=== PATIENT | female | born 1990 | race Caucasian/White ===

== ENCOUNTER 2016-09-27 17:16 | Emergency (ER) | payer OTHER ==
[~2016-09-27 17:16] MED LIST: ALPR1TAB3 PO
--- NOTE | 2016-09-27 18:14 | PD ---
HPI Chief Complaint Patient here for viability to go to [employer] [facility] Date Seen: Sep 27, 2016 Travel History International Travel<30 Days: No Contact w/Intl Traveler<30Days: No Known Affected Area: No History of Present Illness HPI Patient is 26-year-old white female at 31 weeks and essentially no regular care she's been to several hospital ERs over in the area and had several ultrasounds but no doctor visits. She is planning to see Dr. Samuel because she is just getting out of prison in OB in the [facility] warm program. Patient denies pain bleeding or leakage of fluid. Baby is active. Heart rate tracing is reactive.no Contractions noted Para: 0 : 3 History Social History Alcohol Use: Yes Tobacco Use: Yes Substance Abuse: Yes Allergies-Medications (Allergen,Severity, Reaction): Coded Allergies: Cipro (Verified Allergy, Unknown, 01/23/16) Zyrtec (Unverified Allergy, Unknown, 01/23/16) Home Meds Reported Medications Alprazolam 1 Mg Tab1 Mg PO Q6H PRN (ANXIETY) Ref 0 01/23/16 Review of Systems General / Constitutional: No: Fever, Weight Gain, Chills, Other Eyes: No: Diploplia, Blurred Vision, Visual changes, Pain, Photophobia HENT: No: Headaches, Vertigo, Lightheadedness Cardiovascular: No: Irregular Rhythm, Chest Pain or Discomfort, Palpitations, Tachycardia, Syncope, Varicosities, Edema, Cyanosis Respiratory: No: Cough, Short of Breath, Other Gastrointestinal: No: Nausea, Vomiting, Diarrhea Genitourinary: No: Decreased Urinary Output, Oliguria Musculoskeletal: No: Limited ROM, Weakness, Cramping, Edema, Pain Skin: No Rash, No Itching, No Dryness, No Lumps, No Change in Pigmentation, No Change in Nails, No Alopecia, No Lesions Neurologic: No: Weakness, Dizziness, Syncope, Focal Abnormalities, Coordination Problem, Headache, Slurred Speech, Seizures Psychiatric: No: Depression, Suicidal Ideations, Homicidal Ideation Endocrine: No: Heat Intolerance, Cold Intolerance, Polydipsia, Polyuria, Other Physical Exam Narrative GENERAL: Well-nourished, well-developed patient. SKIN: Warm and dry. HEAD: Normocephalic and atraumatic. EYES: No scleral icterus. No injection or drainage. ENT: No nasal drainage noted. Mucous membranes pink. Airway patent. NECK: Supple, trachea midline. No JVD. CARDIOVASCULAR: Regular rate and rhythm without murmurs, gallops, or rubs. RESPIRATORY: Breath sounds equal bilaterally. No accessory muscle use. BREASTS: Bilateral exam showed no masses , no retractions, no nipple discharge. ABDOMEN/GI: Abdomen soft, non-tender, bowel sounds present, no rebound, no guarding Gravid to [-30] weeks size Fundal Height: [30-] GENITOURINARY: External Genitalia: intact and normal in appearance Presentation: [-Backup transverse] Membranes: [intact ] Uterine Contractions: [none-] FHT's: Category: [-]1 Baseline: [133-] Reactive: [-yes] Variability: [-mod] Decels: [none-] EXTREMITIES: No cyanosis or edema. BACK: Nontender without obvious deformity. No CVA tenderness. NEUROLOGICAL: Awake and alert. Motor and sensory grossly within normal limits. Five out of 5 muscle strength in all muscle groups. Normal speech. Data Data Orders Ob Poc Ultrasound (09/27/16 ) Labs Ultrasound done at bedside shows a single intrauterine 30 week size estimated weight 220 gm that is a backup transverse lie with small parts and lower uterine segment. This adequate amniotic fluid, anterior placenta grade 1 that is low lying but not a previa, EDC by her ultrasound 12/06/16 and this correlates well with previous scan she's had. MDM Interpretation(s) Patient is a 26-year-old white female at 31 weeks who presents for basically viability She's going into project [facility], she has no complaints or problems. She denies bleeding or leakage her pain, baby is active, heart rate tracing is reactive, no contractions noted, cervix was not checked today. Her bedside ultrasound is consistent with a 30 week intrauterine in a backup transverse lie with anterior placenta is low-lying but not a previa, as normal amniotic fluid normal anatomy scan Plan Plan to discharge and she will go to the appropriate facility and program and begin care Dr. Samuel Diagnosis Diagnosis: Primary Impression: Drug use affecting in third trimester Disposition: 01 DISCHARGE HOME Condition: Stable Patient Instructions: General Instructions, Labor (ED), Having Your Baby: The Labor Process (GEN), Movement (ED) Departure Forms: Tests/Procedures Tian Page II, MD Sep 27, 2016 18:14
== END 2016-09-27 18:17 | disposition home or self-care (01) ==
LOC: HOBED 17:18
DX: O99.323 Drug use complicating pregnancy, third trimester (principal); Z3A.31 31 weeks gestation of pregnancy; Z79.899 Other long term (current) drug therapy; Z88.1 Allergy status to other antibiotic agents; Z88.8 Allergy status to other drugs, medicaments and biological substances; Z72.0 Tobacco use
CPT/HCPCS: 76815

== ENCOUNTER 2016-10-04 13:22 | Emergency (ER) | payer OTHER ==
[~2016-10-04] VITALS: Ht 170.2 cm; Wt 70.0 kg
[2016-10-04 13:24] VITALS: BP 124/77; PULSE 110; RESP 16; TEMP 98.2; O2SAT 98
[2016-10-04 15:15] VITALS: RESP 16
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
[2016-10-04] MEDS ORDERED: LACTATED RINGER'S 1000 ML INJ 1,000 ML IV SCH (16:06)
[2016-10-04] MEDS ORDERED: TERBUTALINE INJ 1 MG/ML AMP SQ PRN (16:15)
[2016-10-04 16:48] LABS: BLOOD, URINE NEG (NEG); COMMENT (UR) CULT NOT INDICATED; CULTURE IF INDICATED CULT NOT INDICATED; GLUCOSE,URINE NEG (NEG); KETONE, URINE 40 mg/dL (NEG); MUCUS URINE FEW /lpf (OCC); NITRITE,URINE NEG (NEG); PH, URINE 6.5 (5.0-8.5); SQUAMOUS EPITHELIAL CELL URINE 16 /hpf (0-5); URINE COLOR YELLOW (YELLW/STRAW)
[2016-10-04] MEDS ORDERED: ACETAMINOPHEN 325 MG TAB PO ONE (17:00)
[2016-10-04 17:06] VITALS: BP 110/58; PULSE 99
[2016-10-04] MEDS ORDERED: LORA1CHW CHEW (17:40)
== END 2016-10-04 18:18 | disposition home or self-care (01) ==
LOC: HOBED 13:22
DX: O62.9 Abnormality of forces of labor, unspecified (principal); O26.893 Other specified pregnancy related conditions, third trimester; R30.0 Dysuria; Z29.13 Encounter for prophylactic Rho(D) immune globulin; Z3A.31 31 weeks gestation of pregnancy
CPT/HCPCS: 59025; 81001; 82731; 86850; 86900; 86901; 87086; 96360; 96361; 96372; 99284; J2790; J7120; 90384; J3010

== ENCOUNTER 2016-11-29 12:45 | Emergency (ER) | payer OTHER ==
[~2016-11-29 12:45] MED LIST changes: -ALPR1TAB3 PO; +CLAR10CA3 PO; +PREN1TAB58; +TYLE325T PO
--- NOTE | 2016-11-29 13:46 | PD ---
HPI Chief Complaint contractions Date Seen: Nov 29, 2016 Time Seen: 13:43 Travel History International Travel<30 Days: No Contact w/Intl Traveler<30Days: No History of Present Illness HPI Ms. Montanez is a 26 y/o at 39 weeks presents for contractions. She states that early this morning starting noticing contractions every 5-6 minutes. States they aren't very painful. Also lost her mucus plug. Otherwise, denies any vaginal bleeding, loss of fluids. Endorses good movement. She sees care for women. No problems during this . She was using Lortab and Xanax early in , but quit at 8 weeks. She is currently at [employer]. Occasional headache, but denies changes in vision, RUQ pain, edema. No chest pain, SOB, dysuria, leg pain. Weeks Gestation: 39 Para: 0 : 3 Miscarriage: 1 : 1 History Past Medical History Medical History: Denies Significant Hx Obstetric History Obstetric History 1st - 2nd -miscarriage early in gestation Past Surgical History Surgical History: No Previous Surgery Family History Family History: Negative Social History Alcohol Use: No Tobacco Use: No Substance Abuse: No Allergies-Medications (Allergen,Severity, Reaction): Coded Allergies: cetirizine (Unverified Allergy, Unknown, 11/24/16) ciprofloxacin (Verified Allergy, Unknown, 11/24/16) Home Meds Reported Medications Acetaminophen (Tylenol) 325 Mg Tab, 650 MG PO Q4H Y for PAIN SCALE 1 TO 5, TAB 0 Refills 11/10/16 Loratadine (Claritin) 10 Mg Cap, 10 MG PO DAILY for Allergy Management, CAP 0 Refills 11/10/16 Vit/Iron Fumarate/FA ( Vitamin Formula Tb) 27 Mg Iron-800 Mcg Tablet 11/10/16 Review of Systems General / Constitutional: Weight Gain, No: Fever, Chills, Other Eyes: No: Diploplia, Blurred Vision, Visual changes, Pain, Photophobia HENT: Headaches, No: Vertigo, Lightheadedness Cardiovascular: No: Irregular Rhythm, Chest Pain or Discomfort, Palpitations, Tachycardia, Syncope, Varicosities, Edema, Cyanosis Respiratory: No: Cough, Short of Breath, Other Gastrointestinal: No: Nausea, Vomiting, Diarrhea, Abdominal Pain Genitourinary: No: Urgency, Dysuria, Decreased Urinary Output, Oliguria Musculoskeletal: No: Limited ROM, Weakness, Cramping, Edema, Pain Skin: No Rash, No Itching, No Dryness, No Lumps, No Change in Pigmentation, No Change in Nails, No Alopecia, No Lesions Neurologic: No: Weakness, Dizziness, Syncope, Focal Abnormalities, Coordination Problem, Headache, Slurred Speech, Seizures Psychiatric: No: Depression, Suicidal Ideations, Homicidal Ideation Endocrine: No: Heat Intolerance, Cold Intolerance, Polydipsia, Polyuria, Other Physical Exam Narrative GENERAL: Well-nourished, well-developed patient. SKIN: Warm and dry. HEAD: Normocephalic and atraumatic. EYES: No scleral icterus. No injection or drainage. ENT: No nasal drainage noted. Mucous membranes pink. Airway patent. NECK: Supple, trachea midline. No JVD. CARDIOVASCULAR: Regular rate and rhythm without murmurs, gallops, or rubs. RESPIRATORY: Breath sounds equal bilaterally. No accessory muscle use. ABDOMEN/GI: Abdomen soft, non-tender, bowel sounds present, no rebound, no guarding Gravid to 39 weeks size GENITOURINARY: External Genitalia: intact and normal in appearance Cervix: posterior Dilatation: 1-2 Effacement: 50 Station: -3 Presentation: vertex Membranes: intact Uterine Contractions: q5-6 minutes FHT's: Category: 1 Baseline: 150 Reactive: yes Variability: moderate Decels: none EXTREMITIES: No cyanosis or edema. BACK: Nontender without obvious deformity. No CVA tenderness. NEUROLOGICAL: Awake and alert. Motor and sensory grossly within normal limits. Five out of 5 muscle strength in all muscle groups. Normal speech. Data Data Vital Signs Reviewed: Yes Orders Orders Vital Signs (Adult) .ON ADMISSION (11/29/16 13:38) ^ Labor Status (11/29/16 13:38) ^ Hydration (11/29/16 13:38) Group B Strep: Negative MDM Medical Record Reviewed: Yes Interpretation(s) 26 y/o at 39/0 weeks presents for contractions. Category 1 FHT. Cervical exam: 1-2/50/-3 GBS negative 1) IUP at 39/0 weeks. FHT reassuring, no signs of active labor. In latent labor. -Oral hydration -Discharge home -Return to ED if painful contractions q2-3 minutes apart, gush of fluids, or vaginal bleeding. -F/u with OB Diagnosis Diagnosis: Primary Impression: Qualified Codes: Z3A.39 - 39 weeks gestation of Disposition: 01 DISCHARGE HOME Condition: Stable Patient Instructions: General Instructions, Early Labor Signs (ED) Nilson Monte MD, R2 Nov 29, 2016 13:46
== END 2016-11-29 14:26 | disposition home or self-care (01) ==
LOC: HOBED 12:45
DX: O26.893 Other specified pregnancy related conditions, third trimester (principal); R10.9 Unspecified abdominal pain; Z3A.39 39 weeks gestation of pregnancy
CPT/HCPCS: 99283

== ENCOUNTER 2016-11-29 20:58 | Inpatient (IN) | payer OTHER ==
[~2016-11-29] VITALS: Ht 170.2 cm; Wt 80.0 kg
[2016-11-29] VITALS (8 sets, daily range): BP systolic 115–133; BP diastolic 67–83; PULSE 92–107; RESP 18
[2016-11-29] MEDS ORDERED: hydrOXYzine HCL 50 MG/ML VIAL IM STA (21:36)
--- NOTE | 2016-11-29 21:59 | PD ---
HPI Chief Complaint Contractions and vaginal discharge Date Seen: Nov 29, 2016 Time Seen: 21:55 Travel History International Travel<30 Days: No Contact w/Intl Traveler<30Days: No Known Affected Area: No History of Present Illness HPI 26-year-old who is at 39 weeks and 3 days comes in complaining of worsening contractions since discharged at 4 PM as well as some watery discharge that occurred just after arrival. Patient denies any obstetrical complications and sees care for women and is involved in [facility]. Group B strep is negative. Weeks Gestation: 39 Para: 0 : 3 Miscarriage: 1 : 1 History Past Medical History Medical History: Denies Significant Hx Obstetric History Obstetric History One miscarriage and 1 Past Surgical History Surgical History: No Previous Surgery Family History Family History: Negative Social History Alcohol Use: No Tobacco Use: No Substance Abuse: Yes (history of Lortab and Xanax use in first trimester) Allergies-Medications (Allergen,Severity, Reaction): Coded Allergies: cetirizine (Unverified Allergy, Unknown, 11/29/16) ciprofloxacin (Verified Allergy, Unknown, 11/29/16) Home Meds Reported Medications Acetaminophen (Tylenol) 325 Mg Tab, 650 MG PO Q4H Y for PAIN SCALE 1 TO 5, TAB 0 Refills 11/10/16 Loratadine (Claritin) 10 Mg Cap, 10 MG PO DAILY for Allergy Management, CAP 0 Refills 11/10/16 Vit/Iron Fumarate/FA ( Vitamin Formula Tb) 27 Mg Iron-800 Mcg Tablet 11/10/16 Review of Systems Except as stated in HPI: all other systems reviewed are Neg Physical Exam Narrative GENERAL: Well-nourished, well-developed patient. SKIN: Warm and dry. HEAD: Normocephalic and atraumatic. EYES: No scleral icterus. No injection or drainage. ENT: No nasal drainage noted. Mucous membranes pink. Airway patent. NECK: Supple, trachea midline. No JVD. CARDIOVASCULAR: Regular rate and rhythm without murmurs, gallops, or rubs. RESPIRATORY: Breath sounds equal bilaterally. No accessory muscle use. ABDOMEN/GI: Abdomen soft, non-tender, bowel sounds present, no rebound, no guarding Gravid to [39-] weeks size Fundal Height: [-] GENITOURINARY: External Genitalia: intact and normal in appearance BUS glands: [-Normal] Cervix: [-Posterior] Dilatation: [-1 to2] Effacement: [-80] Station: [-2-] Presentation: [Vertex-] Membranes: [Grossly ruptured] Uterine Contractions: [-Every 5 minutes FHT's: Category: [1-] Baseline: [-140] Reactive: [Moderate-] Variability: [-Moderate] Decels: [-Absent] EXTREMITIES: No cyanosis or edema. BACK: Nontender without obvious deformity. No CVA tenderness. NEUROLOGICAL: Awake and alert. Motor and sensory grossly within normal limits. Five out of 5 muscle strength in all muscle groups. Normal speech. Data Data Vital Signs Reviewed: Yes Orders Orders Vital Signs (Adult) .ON ADMISSION (11/29/16 21:36) ^ Labor Status (11/29/16 21:36) Diet Liquid (11/30/16 Breakfast) Hydroxyzine Hcl Inj (Vistaril Inj) (11/29/16 21:36) Ob (2e) Additional Admit Info (11/29/16 21:53) Group B Strep: Negative MDM Medical Record Reviewed: Yes Plan 26-year-old who is at 39-40 weeks gestation with rupture membranes in early labor and group B strep negative. History of Lortab exam next use, will order a urine drug screen Diagnosis Diagnosis: Primary Impression: Drug use affecting in third trimester Additional Impressions: 39 weeks gestation of Irregular uterine contractions Rupture of membranes with clear amniotic fluid Priya Castro MD Nov 29, 2016 21:59
[2016-11-29] MEDS ORDERED: OXYTOCIN 30 UNITS-500ML PREMIX 500 ML IV ONE (22:00)
[2016-11-29] MEDS ORDERED: SODIUM CHLORID 0.9% 500 ML INJ 500 ML IV PRN (22:00)
[2016-11-29] MEDS ORDERED: LACTATED RINGER'S 1000 ML INJ 1,000 ML IV PRN (22:00)
[2016-11-29] MEDS ORDERED: LIDOCAINE HCL 1% 50 ML VIAL INFIL PRN (22:00)
[2016-11-29] MEDS ORDERED: CITRIC ACID-SODIUM CITRATE LIQ 30 ML UDC PO SCH (22:00)
[2016-11-29] MEDS ORDERED: MINERAL OIL 10 ML VIAL TOPICAL PRN (22:00)
[2016-11-29] MEDS ORDERED: ONDANSETRON HCL 4 MG/2 ML VIAL IV PRN (22:00)
[2016-11-29] MEDS ORDERED: LIDOCAINE HCL 1% 50 ML VIAL I-DERMAL PRN (22:00)
[2016-11-29] MEDS ORDERED: SODIUM CHLOR 0.9% 1000 ML INJ 1,000 ML IV PRN (22:20)
[2016-11-29 22:24] LABS: BACTERIA, URINE FEW /hpf; BLOOD, URINE MOD (NEG); COMMENT (UR) CULTURE INDICATED; CULTURE IF INDICATED CULTURE INDICATED; GLUCOSE,URINE TRACE mg/dL (NEG); KETONE, URINE NEG (NEG); MUCUS URINE FEW /lpf (OCC); NITRITE,URINE POS (NEG); PH, URINE 6.5 (5.0-8.5); SQUAMOUS EPITHELIAL CELL URINE 8 /hpf (0-5); URINE COLOR YELLOW (YELLW/STRAW)
[2016-11-29 22:27] LABS: AUTOMATED NEUTROPHIL # 20.5 TH/MM3 (1.8-7.7); BASOPHIL # 0.1 TH/MM3 (0-0.2); BASOPHIL % 0.4 % (0.0-2.0); EOSINOPHIL % 0.2 % (0.0-4.0); HEMATOCRIT 34.9 % (35.0-46.0); HEMO FLAGS DIFF FINAL; LYMPH % 8.5 % (9.0-44.0); LYMPHOCYTE # 2.1 TH/MM3 (1.0-4.8); MEAN CELL VOLUME 87.4 FL (80.0-100.0); MEAN CORPUSCULAR HEMOGLOBIN 28.4 PG (27.0-34.0); MEAN CORPUSCULAR HGB CONC 32.5 % (32.0-36.0); MONO % 8.3 % (0.0-8.0); NEUT % 82.6 % (16.0-70.0); PLATELET COUNT 251 TH/MM3 (150-450); RED CELL DISTRIBUTION WIDTH 13.3 % (11.6-17.2); WHITE BLOOD COUNT 24.8 TH/MM3 (4.0-11.0)
[2016-11-29] MEDS: LACTATED RINGER'S 1000 ML INJ 1,000 ML IV SCH (22:38)
[2016-11-29] MEDS ORDERED: fentaNYL 2MCG-BUPIV 0.125% INJ 100 ML ONE (23:05)
[2016-11-29] MEDS ORDERED: NO SYSTEM NARCOTICS PRN (23:45)
[2016-11-29] MEDS ORDERED: DO NOT ADMINISTER ANTICOAGULANTS PRN (23:45)
[2016-11-29] MEDS ORDERED: ePHEDrine/NS 25 MG/5 ML SYR IV PRN (23:45)
[2016-11-29] MEDS ORDERED: fentaNYL 2MCG-BUPIV 0.125% 100 ML EPIDURAL SCH (23:45)
[2016-11-30] VITALS (44 sets, daily range): BP systolic 97–129; BP diastolic 51–92; PULSE 77–157; RESP 16–20; TEMP 98–101.7
--- NOTE | 2016-11-30 00:38 | HHI.PR ---
[employer] Note Note Cervix 4cm FHR baseline 140 moderate variability, reactive with occasional variable decelerations to 90 x 30 seconds with contraction. Will start amnioinfusion. Priya Castro MD Nov 30, 2016 00:38
[2016-11-30] MEDS ORDERED: METHYLERGONOVINE MALEATE 0.2 MG/ML VIAL ONE (06:05)
[2016-11-30 06:22] LABS: BLOOD GAS BASE EXCESS -2.6 mmol/L (-2-2); BLOOD GAS O2 HGB SATURATION 32 % (90-100); CORD BLOOD GAS HCO3 24 mmol/L (21-29); CORD BLOOD GAS PCO2 60 mmHG (34-78); CORD BLOOD GAS PH 7.23 (7.14-7.42); CORD BLOOD GAS PO2 20 mmHG (3.0-40.0); DRAW SITE CORD BLOOD; STAT YES
--- NOTE | 2016-11-30 06:27 | PD.OB.DELI ---
Weeks gestation: 39 Gest age assessed date: Nov 29, 2016 Gest age assessed time: 21:00 Pt started active labor?: Yes Active labor start date: Nov 29, 2016 Active labor start time: 21:00 Medical induction of labor?: No Artificial rupture of membrane: No Anesthesia: Epidural Episiotomy: None Vaginal Delivery: Vacuum (JAY presentation at +3. Vacuum at 550mm for 2 pulls over intact perineum) Presentation: Occiput anterior Nuchal Cord: None Delayed cord clamping (45 sec): Yes : Male Delivery date: Nov 30, 2016 Delivery time: 06:09 One Minute : 8 Five Minute : 9 Weight: 3734gm Placenta: Spontaneous delivery, Intact Laceration: 2 deg Repair: Priya Jackson MD Nov 30, 2016 06:27
[2016-11-30] MEDS ORDERED: ALUMINUM/MAGNESIUM/SIMETH 30 ML CUP PO PRN (06:30)
[2016-11-30] MEDS ORDERED: ONDANSETRON ODT 4 MG TAB PO PRN (06:30)
[2016-11-30] MEDS ORDERED: WITCH HAZEL 50%/GLYCERIN 12.5% 40 PAD JAR TOPICAL PRN (06:30)
[2016-11-30] MEDS ORDERED: SODIUM CHLORIDE 0.9% FLUSH 10 ML FLUSH IV FLUSH PRN (06:30)
[2016-11-30] MEDS ORDERED: OXYTOCIN 30 UNITS-500ML PREMIX 500 ML IV SCH (06:30)
[2016-11-30] MEDS ORDERED: BENZOCAINE 20% TOPICAL SPRAY 60 ML CAN TOPICAL PRN (06:30)
[2016-11-30] MEDS: LACTATED RINGER'S 1000 ML INJ 1,000 ML IV SCH (07:18)
[2016-11-30] MEDS ORDERED: SODIUM CHLORIDE 0.9% FLUSH 10 ML FLUSH IV FLUSH SCH (09:00)
[2016-11-30] MEDS ORDERED: AMMONIA AROMATIC INHALANT 0.33 ML ONE (10:21)
[2016-11-30] MEDS: DOCUSATE SODIUM 50 MG/SENNA 8.6 MG TAB PO PRN ×2 (10:38→20:31)
[2016-11-30] MEDS ORDERED: MEASLES, MUMPS, RUBELLA VACCINE 0.5 ML VIAL SQ ONE (16:00)
[2016-11-30] MEDS ORDERED: DIPHTH/TETANUS/ACEL PERTUSSIS (BOOSTER) 0.5 ML VIAL/PFS IM ONE (16:00)
[2016-11-30] MEDS: ACETAMINOPHEN 325 MG TAB PO PRN (20:24)
[2016-11-30] MEDS: IBUPROFEN 600 MG TAB PO PRN (20:24)
[2016-12-01 08:20] VITALS: BP 95/74; PULSE 87; RESP 18; TEMP 97.8
[2016-12-01] MEDS: ACETAMINOPHEN 325 MG TAB PO PRN ×2 (08:28→21:08)
[2016-12-01] MEDS: DOCUSATE SODIUM 50 MG/SENNA 8.6 MG TAB PO PRN (08:28)
[2016-12-01] MEDS: IBUPROFEN 600 MG TAB PO PRN ×2 (08:28→18:43)
--- NOTE | 2016-12-01 09:46 | HHI.OB ---
Subjective Post Day: 1 Remarks day #1. AFVSS overnight. Pain controlled with medications. Decreased lochia. Denies dysuria. No breast tenderness. She is feeding the baby via breast/bottle. Appetite good. No nausea or vomiting. Endorses flatus. No bowel movement. Ambulating well. Denies calf pain, shortness of breath, or cough. Otherwise, she is doing well this morning and has no other complaints. Objective Objective Remarks GENERAL: Well-nourished, well-developed patient. CARDIOVASCULAR: Regular rate and rhythm without murmurs, gallops, or rubs. RESPIRATORY: Breath sounds equal bilaterally. No accessory muscle use. ABDOMEN/GI: Abdomen soft, non-tender. Fundus: Firm, non-tender at umbilicus. GENITOURINARY: Light to moderate bleeding. EXTREMITIES: No cyanosis or edema, non-tender, without signs of DVT. Medications and IVs Current Medications Medications (Trade) Dose Ordered Sig/Arnav Route Start Time Stop Time Status Last Admin (NS Flush) 2 ml BID IV FLUSH 11/30/16 09:00 (NS Flush) 2 ml UNSCH PRN IV FLUSH 11/30/16 06:30 (Tylenol) 650 mg Q4H PRN PO 11/30/16 06:30 12/01/16 08:28 (Motrin) 600 mg Q6H PRN PO 11/30/16 06:30 12/01/16 08:28 (Americaine 20% Top Spr) 1 spray Q4H PRN TOPICAL 11/30/16 06:30 11/30/16 10:37 (Tucks Pads) 1 applic QID PRN TOPICAL 11/30/16 06:30 11/30/16 10:37 (Megan-Colace) 2 tab Q12H PRN PO 11/30/16 06:30 12/01/16 08:28 (Mag-Al Plus Susp Liq) 15 ml Q8H PRN PO 11/30/16 06:30 (Zofran Odt) 4 mg Q6H PRN PO 11/30/16 06:30 Assessment/Plan Assessment and Plan 26y/o who is PPD# 1 s/p . -Continue routine care. -Percocet and Motrin PRN pain. -Encouraged OOB. Advised pelvic rest for 6 wks. -Will need a f/u appt. within 6 wks. -Re: ctrl, she is undecided -D/c in 1-2 more days. dw OB attending Nilson Monte MD, R2 Dec 01, 2016 09:46
[2016-12-01 20:00] VITALS: BP 103/77; PULSE 82; RESP 16; TEMP 98.8
[2016-12-02 07:50] VITALS: BP 94/62; PULSE 73; RESP 16; TEMP 97.9
--- NOTE | 2016-12-02 09:32 | HHI.OB ---
Subjective Post Day: 2 Remarks day #2. AFVSS overnight. Pain controlled with medications. Decreased lochia. Denies dysuria. No breast tenderness. She is feeding the baby via breast/bottle. Appetite good. No nausea or vomiting. Endorses flatus. Endorses bowel movement. Ambulating well. Denies calf pain, shortness of breath, or cough. Otherwise, she is doing well this morning and has no other complaints. Objective Objective Remarks GENERAL: Well-nourished, well-developed patient. CARDIOVASCULAR: Regular rate and rhythm without murmurs, gallops, or rubs. RESPIRATORY: Breath sounds equal bilaterally. No accessory muscle use. ABDOMEN/GI: Abdomen soft, non-tender. Fundus: Firm, non-tender at umbilicus. GENITOURINARY: Light to moderate bleeding. EXTREMITIES: No cyanosis or edema, non-tender, without signs of DVT. Medications and IVs Current Medications Medications (Trade) Dose Ordered Sig/Arnav Route Start Time Stop Time Status Last Admin (NS Flush) 2 ml BID IV FLUSH 11/30/16 09:00 (NS Flush) 2 ml UNSCH PRN IV FLUSH 11/30/16 06:30 (Tylenol) 650 mg Q4H PRN PO 11/30/16 06:30 12/01/16 21:08 (Motrin) 600 mg Q6H PRN PO 11/30/16 06:30 12/01/16 18:43 (Americaine 20% Top Spr) 1 spray Q4H PRN TOPICAL 11/30/16 06:30 11/30/16 10:37 (Tucks Pads) 1 applic QID PRN TOPICAL 11/30/16 06:30 11/30/16 10:37 (Megan-Colace) 2 tab Q12H PRN PO 11/30/16 06:30 12/01/16 08:28 (Mag-Al Plus Susp Liq) 15 ml Q8H PRN PO 11/30/16 06:30 (Zofran Odt) 4 mg Q6H PRN PO 11/30/16 06:30 Assessment/Plan Assessment and Plan 26y/o who is PPD# 2 s/p . -Continue routine care. -Percocet and Motrin PRN pain. -Encouraged OOB. Advised pelvic rest for 6 wks. -Will need a f/u appt. within 6 wks. -Re: ctrl, she is undecided -D/c today dw OB attending Nilson Monte MD, R2 Dec 02, 2016 09:32
[2016-12-02] MEDS ORDERED: IBUP-232 PO (09:34)
[2016-12-02] MEDS ORDERED: SENN1TAB PO (09:34)
--- NOTE | 2016-12-02 09:36 | HHI.DCPOC ---
Discharge Care Plan Diagnosis: (1) care following vaginal delivery Report Symptoms to Your Doctor -Temperature above 100.5 degrees -Redness, of incision or excessive or foul smelling drainage -Unusual pain or calf pain -Increased vaginal bleeding -Painful or difficulty urinating -Feelings of extreme sadness or anxiety after 2 weeks Goals to Promote Your Health * To prevent worsening of your condition and complications * To maintain your health at the optimal level Directions to Meet Your Goals Take your medications as prescribed Follow your dietary instruction Follow activity as directed Ensure plenty of rest for recovery Drink fluids for hydration Keep your appointments as scheduled Take your immunizations and boosters as scheduled If your symptoms worsen call your PCP, if no PCP go to Urgent Care Center or Emergency Room Smoking is Dangerous to Your Health. Avoid second hand smoke Call the 24-hour crisis hotline for domestic abuse at Nilson Monte MD, R2 Dec 02, 2016 09:36
[2016-12-03 09:19] LABS: ECSTASY (MDMA) UR NEG (NEG); HEROIN (6-ACETYLMORPHINE) UR NEG (NEG); OBMETHADONE UR NEG (NEG); PHENCYCLIDINE URINE NEG (NEG)
[2016-12-03 09:20] LABS: BATH SALTS (MDPV) UR NEG (NEG); GABAPENTIN UR NEG (NEG); HYDROMORPHONE U NEG (NEG); K2 SPICE UR NEG (NEG)
== END 2016-12-02 11:00 | disposition home or self-care (01) | DRG 775 ==
LOC: HOBED 20:58 → H2EA 21:54 → H1EA 11-30 09:14
PROVIDERS: ADMIT Obstetrics & Gynecology Obstetrics; ATTEND Obstetrics & Gynecology Obstetrics
PROC: 10D07Z6 Extraction of Products of Conception, Vacuum, Via Natural or Artificial Opening (ICD-10-PCS; principal; 2016-11-30)
PROC: 0KQM0ZZ Repair Perineum Muscle, Open Approach (ICD-10-PCS; 2016-11-30)
PROC: 3E0E7GC Introduction of Other Therapeutic Substance into Products of Conception, Via Natural or Artificial Opening (ICD-10-PCS; 2016-11-30)
DX: O70.1 Second degree perineal laceration during delivery (principal); Z37.0 Single live birth; O26.893 Other specified pregnancy related conditions, third trimester; Z3A.39 39 weeks gestation of pregnancy
CPT/HCPCS: 80307; 81001; 82805; 85025; 86900; 86901; 87086; 90715; 99283; 99285; G0481; J0690; J2210; J2590; J3010; J7120